=== PATIENT | female | born 1955 | race Caucasian/White ===

== ENCOUNTER 2018-04-16 13:00 | Emergency (ER) | payer BC, OTHER, SELFPAY ==
--- NOTE | 2018-04-16 15:33 | RAD ---
RIGHT SHOULDER TWO VIEWS: 04/16/18 HISTORY: Patient fell [place] a gas station, having right shoulder pain. The bones are slightly demineralized. 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 A small subarachnoid spur is present. Some calcifications associated with the rotator cuff. There is no signs of fracture or dislocation. IMPRESSION: No acute injury. POS: [facility]
== END 2018-04-16 14:52 | disposition home or self-care (01) ==
LOC: ERS 13:00
DX: S46.911A Strain of unspecified muscle, fascia and tendon at shoulder and upper arm level, right arm, initial encounter (principal); F41.9 Anxiety disorder, unspecified; F32.9 Major depressive disorder, single episode, unspecified; E66.9 Obesity, unspecified; I10 Essential (primary) hypertension; E11.9 Type 2 diabetes mellitus without complications; W01.0XXA Fall on same level from slipping, tripping and stumbling without subsequent striking against object, initial encounter

== ENCOUNTER 2021-05-29 08:14 | Outpatient (CLI) | payer BC, MEDICARE | END 2021-05-29 08:15 | disposition home or self-care (01) | LOC: BICMAMMO 08:14 | PROVIDERS: ATTEND Internal Medicine | DX: Z12.31 Encounter for screening mammogram for malignant neoplasm of breast (principal); Z80.3 Family history of malignant neoplasm of breast; Z85.528 Personal history of other malignant neoplasm of kidney | CPT/HCPCS: 77063; 77067 ==